=== PATIENT | female | born 1955 | race Caucasian/White ===

== ENCOUNTER → 2016-05-20 07:42 | Day surgery (SDC) | payer BC ==
[~2016-05-20 07:42] MED LIST: Buffered Lidocaine 1% SYRIN* 3 ML/SYR SYRINGE INTRADERM ONE; Bupivacaine 0.5% SDV PF* 30 ML VIAL ONE; Dexamethasone IV* 4 MG/ML 1 ML (4 MG) IV SLOW PU ONE; Dexamethasone IV* 4 MG/ML 1 ML (4 MG) ONE; Famotidine IV* 10 MG/ML 2 ML (20 mg) IV ONE; Famotidine IV* 10 MG/ML 2 ML (20 mg) ONE; HYDROcodone/ACETAMIN 5-325 MG* 1 TAB PO PRN; Ketorolac INJ* 30 MG/ML 1 ML VIAL ONE; Lidocaine 2% PF* 10 ML AMP ONE; Lidocaine 2% PF* 5 ML VIAL ONE; Midazolam* 1 MG/ML 5 ML VIAL (5 MG) ONE; Ondansetron INJ* 2 MG/ML VIAL ONE; PROCHLORPERAZINE INJ 5 MG/ML 2 ML VIAL IV PRN; Propofol* 10 MG/ML 20 ML BTL IV PUSH ONE; ceFAZolin 2 GM PREMIX(*) 2 GM/50 ML BAG IVPB ONE; fentaNYL* 50 MCG/ML 2 ML VIAL (100 MCG VIAL) IV PRN; fentaNYL* 50 MCG/ML 2 ML VIAL (100 MCG VIAL) ONE
[2016-05-20 10:57] VITALS: BP 119/78
--- NOTE | 2016-05-21 12:27 | OP ---
DATE OF OPERATION: 05/20/16 - [facility] DATE OF : 57 ATTENDING SURGEON: Domingo Bhatt MD. FERTILIZER MIXER: Miladys Armenta PA-C ANESTHESIOLOGIST: Edith Michael MD ANESTHESIA: General PRE-OP DIAGNOSIS: Left ankle instability, torn anterior talofibular ligament. POST-OP DIAGNOSIS: Left ankle instability, torn anterior talofibular ligament. OPERATIVE PROCEDURE: Open repair left anterior talofibular ligament. DESCRIPTION OF PROCEDURE: The patient was taken to the operating room where a longitudinal incision was made over the distal fibula. I raised an anterior flap to allow visualization of the capsule. I divided the capsule directly on the anterior and distal portion of the fibula. I was then able to inspect the thickness and firm attachment of the capsule. I felt that the capsules could be repaired and brought up to the fibula without having these in allograft. [id number] bone sutures were then made with a 0.062 C-wire. I passed #1 Vicryl through these holes and then brought the capsule up firmly to the edge of the fibula with a Santino-Shan suture. We then brought the redundant periosteum over the capsular repair with 2-0 Vicryl and after subcu closure, some fernando and a compression dressing and plaster splint applied. [id number]/CPS #: [id number] MTDD
== END | disposition home or self-care (01) ==
LOC: OR 07:42
PROVIDERS: ATTEND Orthopaedic Surgery
DX: M25.372 Other instability, left ankle (principal); Z87.891 Personal history of nicotine dependence
CPT/HCPCS: C1776; J0690; J1100; J1885; J2001; J2250; J2405; J2704; J3010

== ENCOUNTER 2016-10-17 15:51 | Emergency (ER) | payer BC, OTHER ==
--- NOTE | 2016-10-17 18:06 | RAD ---
Indication: Midsternal chest pain. History of herniation. Comparison: June 14, 2012 Technique: Upright AP 1747 hours Report: Clear lungs and pleural spaces. Negative for pneumothorax. The heart, pulmonary vasculature, and mediastinal contours are unremarkable. Unremarkable osseous structures and soft tissue contours. IMPRESSION: No evidence for acute intrathoracic disease.
[2016-10-17 18:36] LABS: Hematocrit 43 % (35-47); Hemoglobin 14.8 g/dl (12.0-16.0); Mean Corpuscular HGB Conc 35 g/dl (31-36); Mean Corpuscular Hemoglobin 32 pg (27-31); Mean Corpuscular Volume 93 fL (80-97); Mean Platelet Volume 8 um3 (7.4-10.4); Red Blood Count 4.62 10^6/ul (4.0-5.4); Red Cell Distribution Width 13 % (10.5-15); White Blood Count 10.9 10^3/ul (3.5-10.8)
[2016-10-17 18:55] LABS: Albumin 4.2 g/dL (3.2-5.2); BUN/Creatinine Ratio 21.6 (8-20); Calcium 9.4 mg/dL (8.6-10.3); EGFR African American 158.7 (>60); EGFR Non-African American 123.4 (>60); Globulin 3.4 g/dL (2-4); Magnesium 2.1 mg/dL (1.9-2.7); Potassium 3.8 mmol/L (3.5-5.0); Total Bilirubin 0.5 mg/dL (0.2-1.0); Total Protein 7.6 g/dL (6.4-8.9)
--- NOTE | 2016-10-17 19:21 | ED ---
HPI Chest Pain - HPI Summary HPI Summary: Patient presents to the ED with CC of chest pain since yesterday described as "lump in the midsternal chest" and as a "pressure" History of a hiatal hernia and GERD. Chest pain began yesterday after eating a bowl of chili. She stated it continued throughout her dinner and again this morning after breakfast, although she did not have a spicy breakfast, but symptoms began again and worsened after eating. She states now the pain has all but dissipated and rates it 1/10, previously a 8/10. Not worse with exertion or better with rest. She denies radiation of pain including involvment of the jaw or shoulder. Denies diaphoresis. Past family hitory is very strong for cardiac pathologies. Mother had first CA at 36, all family including brothers and sisters (all but 1 ) have history of CA's and HTN and multiple strokes. Denies taking any medications since changing her diet, but has had flare ups since that time. Her PCP has not placed her on any medications for her GERD at this point since she has not had many flare ups. She notes to coffee causing flare ups. She denies smoking history. PMHx includes HTN which she takes Atenolol 25mg daily. She is otherwise healthy. She is a non-smoker, very active, lives with . - History of Current Complaint Chief Complaint: EDChestPainROMI Time Seen by Provider: 10/17/16 16:39 Hx Obtained From: Patient Onset/Duration: Started Days Ago Timing: Intermittent - started yesterday afternoon Initial Severity: Mild Current Severity: Mild Pain Intensity: 1 Pain Scale Used: 0-10 Numeric Chest Pain Radiates: No Character: Dull/Aching, Heaviness Aggravating Factor(s): Nothing Alleviating Factor(s): Nothing Associated Signs and Symptoms: Positive: Chest Pain - Risk Factors Pulmonary Embolism Risk Factors: Negative TAD Risk Factors: Negative AMI/ACS Risk Factors: Family History, Hypertension - Allergy/Home Medications Allergies/Adverse Reactions: Allergies Allergy/AdvReac Type Severity Reaction Status Date / Time Sulfa Drugs Allergy Severe Anaphylatic Verified 05/14/16 12:56 Shock PMH/Surg Hx/FS Hx/Imm Hx Previously Healthy: Yes Endocrine/Hematology History: Denies: Hx Diabetes, Hx Thyroid Disease Cardiovascular History: Reports: Hx Hypertension Denies: Hx Congestive Heart Failure, Hx Pacemaker/ICD Respiratory History: Denies: Hx Asthma, Hx Chronic Obstructive Pulmonary Disease (COPD) GI History: Reports: Hx Hiatal Hernia - in the past, no surgery Denies: Hx Ulcer History: Denies: Hx Dialysis, Hx Renal Disease Sensory History: Reports: Hx Contacts or Glasses - reading Denies: Hx Hearing Aid Opthamlomology History: Reports: Hx Contacts or Glasses - reading Neurological History: Denies: Other Neuro Impairments/Disorders - DENIES Psychiatric History: Denies: Hx Panic Disorder - Cancer History Hx Chemotherapy: No Hx Radiation Therapy: No - Surgical History Surgery Procedure, Year, and Place: LEFT ankle surgery X2 laparoscopy 30 yrs ago ENDOMETRIOSIS, LEFT SHOULDER ARTHROSCOPY 11/22 Hx Anesthesia Reactions: No Infectious Disease History: No Infectious Disease History: Denies: Hx Clostridium Difficile, Hx Hepatitis, Hx Human Immunodeficiency Virus (HIV), Hx of Known/Suspected MRSA, Hx Shingles, Hx Tuberculosis, Hx Known/ Suspected VRE, Hx Known/Suspected VRSA, History Other Infectious Disease, Traveled Outside the in Last 30 Days - Social History Occupation: Employed Full-time Lives: With Family Alcohol Use: Daily Alcohol Amount: WINE WITH DINNER Hx Substance Use: No Substance Use Type: Reports: None Hx Tobacco Use: No Smoking Status (MU): Former Smoker Review of Systems Constitutional: Negative Negative: Fever, Chills, Fatigue Eyes: Negative ENT: Negative Positive: Chest Pain Respiratory: Negative Gastrointestinal: Negative Positive: no symptoms reported, see HPI Skin: Negative Neurological: Negative All Other Systems Reviewed And Are Negative: Yes Physical Exam Triage Information Reviewed: Yes Vital Signs On Initial Exam: Initial Vitals Temp Pulse Resp BP Pulse Ox 97.9 F 66 20 144/101 98 10/17/16 15:52 10/17/16 15:52 10/17/16 15:52 10/17/16 15:52 10/17/16 15:52 Vital Signs Reviewed: Yes Appearance: Positive: Well-Appearing, Well-Nourished Skin: Positive: Warm, Skin Color Reflects Adequate Perfusion Head/Face: Positive: Normal Head/Face Inspection Eyes: Positive: EOMI, MARJORIE Neck: Positive: Supple, No Lymphadenopathy Respiratory/Lung Sounds: Positive: Clear to Auscultation, Breath Sounds Present Cardiovascular: Positive: Normal, RRR, Pulses are Symmetrical in both Upper and Lower Extremities Musculoskeletal: Positive: Normal, Strength/ROM Intact Neurological: Positive: Sensory/Motor Intact, Alert, Oriented to Person Place, Time, Speech Normal Psychiatric: Positive: Normal - [place] Coma Scale Coma Scale Total: 15 Diagnostics - Vital Signs Vital Signs Temp Pulse Resp BP Pulse Ox 10/17/16 18:00 58 14 123/94 99 10/17/16 17:42 98.1 F 58 20 139/87 99 10/17/16 17:30 58 14 139/87 99 10/17/16 17:09 16 137/88 10/17/16 15:52 97.9 F 66 20 144/101 98 - Laboratory Lab Results: Lab Results 10/17/16 10/17/16 10/17/16 Range/Units 18:19 18:19 18:19 WBC 10.9 H (3.5-10.8) 10^3/ul RBC 4.62 (4.0-5.4) 10^6/ul Hgb 14.8 (12.0-16.0) g/dl Hct 43 (35-47) % MCV 93 (80-97) fL MCH 32 H (27-31) pg MCHC 35 (31-36) g/dl RDW 13 (10.5-15) % Plt Count 282 (150-450) 10^3/ul MPV 8 (7.4-10.4) um3 Neut % (Auto) 74.0 (38-83) % Lymph % (Auto) 18.1 L (25-47) % Logan % (Auto) 6.4 (1-9) % Eos % (Auto) 1.1 (0-6) % Baso % (Auto) 0.4 (0-2) % Absolute Neuts (auto) 8.0 H (1.5-7.7) 10^3/ul Absolute Lymphs (auto) 2.0 (1.0-4.8) 10^3/ul Absolute Monos (auto) 0.7 (0-0.8) 10^3/ul Absolute Eos (auto) 0.1 (0-0.6) 10^3/ul Absolute Basos (auto) 0 (0-0.2) 10^3/ul Absolute Nucleated RBC 0 10^3/ul Nucleated RBC % 0 APTT 27.5 (26.0-36.3) seconds D-Dimer, Quantitative < 200 (Less Than 230) ng/mL Sodium (133-145) mmol/L Potassium (3.5-5.0) mmol/L Chloride (101-111) mmol/L Carbon Dioxide (22-32) mmol/L Anion Gap (2-11) mmol/L BUN (6-24) mg/dL Creatinine (0.51-0.95) mg/dL Est GFR ( Amer) (>60) Est GFR (Non-Af Amer) (>60) BUN/Creatinine Ratio (8-20) Glucose (70-100) mg/dL Lactic Acid (0.5-2.0) mmol/L Calcium (8.6-10.3) mg/dL Magnesium (1.9-2.7) mg/dL Total Bilirubin (0.2-1.0) mg/dL AST (13-39) U/L ALT (7-52) U/L Alkaline Phosphatase (34-104) U/L Total Creatine Kinase (10-223) U/L CK-MB (CK-2) (0.6-6.3) ng/mL Troponin I (<0.04) ng/mL B-Natriuretic Peptide 25 ( - 100) pg/mL Total Protein (6.4-8.9) g/dL Albumin (3.2-5.2) g/dL Globulin (2-4) g/dL Albumin/Globulin Ratio (1-3) 10/17/16 10/17/16 Range/Units 18:19 18:19 WBC (3.5-10.8) 10^3/ul RBC (4.0-5.4) 10^6/ul Hgb (12.0-16.0) g/dl Hct (35-47) % MCV (80-97) fL MCH (27-31) pg MCHC (31-36) g/dl RDW (10.5-15) % Plt Count (150-450) 10^3/ul MPV (7.4-10.4) um3 Neut % (Auto) (38-83) % Lymph % (Auto) (25-47) % Logan % (Auto) (1-9) % Eos % (Auto) (0-6) % Baso % (Auto) (0-2) % Absolute Neuts (auto) (1.5-7.7) 10^3/ul Absolute Lymphs (auto) (1.0-4.8) 10^3/ul Absolute Monos (auto) (0-0.8) 10^3/ul Absolute Eos (auto) (0-0.6) 10^3/ul Absolute Basos (auto) (0-0.2) 10^3/ul Absolute Nucleated RBC 10^3/ul Nucleated RBC % APTT (26.0-36.3) seconds D-Dimer, Quantitative (Less Than 230) ng/mL Sodium 134 (133-145) mmol/L Potassium 3.8 (3.5-5.0) mmol/L Chloride 100 L (101-111) mmol/L Carbon Dioxide 25 (22-32) mmol/L Anion Gap 9 (2-11) mmol/L BUN 11 (6-24) mg/dL Creatinine 0.51 (0.51-0.95) mg/dL Est GFR ( Amer) 158.7 (>60) Est GFR (Non-Af Amer) 123.4 (>60) BUN/Creatinine Ratio 21.6 H (8-20) Glucose 100 (70-100) mg/dL Lactic Acid 1.5 (0.5-2.0) mmol/L Calcium 9.4 (8.6-10.3) mg/dL Magnesium 2.1 (1.9-2.7) mg/dL Total Bilirubin 0.50 (0.2-1.0) mg/dL AST 21 (13-39) U/L ALT 17 (7-52) U/L Alkaline Phosphatase 70 (34-104) U/L Total Creatine Kinase 44 (10-223) U/L CK-MB (CK-2) 0.9 (0.6-6.3) ng/mL Troponin I 0.00 (<0.04) ng/mL B-Natriuretic Peptide ( - 100) pg/mL Total Protein 7.6 (6.4-8.9) g/dL Albumin 4.2 (3.2-5.2) g/dL Globulin 3.4 (2-4) g/dL Albumin/Globulin Ratio 1.2 (1-3) Result Diagrams: 10/17/16 18:19 10/17/16 18:19 Lab Statement: Any lab studies that have been ordered have been reviewed, and results considered in the medical decision making process. Chest Pain Course/Dx - Course Course Of Treatment: Patient presents with chest pain intermittent since last evening worse with food intake. History of hiatal hernia and GERD. Takes no medication for GERD. Xray shows no acute changes. EKG shows anteroseptal infarct, age indeterminate. She is feeling better on arrival. 2 trops negative. Other lab work WNL. Chest xray negative. She was not given aspirin in ED d/t feeling improved. She called her PCP who sent her here to the ED for evaluation of acute CA. Denies travel history or smoking. Low risk for PE. Patient states she will follow up with GI and PCP. - Chest Pain Differential Diagnosis/HQI/PQRI: Acute CA, ACS, Chest Wall - Diagnoses Provider Diagnoses: Chest pain Discharge - Discharge Plan Condition: Stable Disposition: HOME Prescriptions: Omeprazole 40 mg PO DAILY #30 cap Patient Education Materials: Chest Pain (ED), Hiatal Hernia (ED) Referrals: Naseem Sam MD [Medical Doctor] - Renetta Willard MD [Primary Care Provider] - Additional Instructions: Please follow up with PCP next week I have given you a referral to GI for hiatal hernia evaluation Take the Prilosec daily 40mg - talk to your doctor about continuing this medication For breakthrough pain and discomfort - Maalox 30mg liquid
[2016-10-17 21:07] VITALS: BP 116/80
== END 2016-10-17 21:05 | disposition home or self-care (01) ==
LOC: ED 15:51
DX: R07.9 Chest pain, unspecified (principal); Z87.891 Personal history of nicotine dependence
CPT/HCPCS: 36415; 71010; 80053; 82550; 82553; 83605; 83735; 83880; 84484; 85025; 85379; 85730; 87040; 93005; 99283

== ENCOUNTER 2018-04-17 09:09 | Emergency (ER) | payer BC, OTHER ==
--- OUTSIDE RECORDS SUMMARY | 2018-04-17 09:16 | XMS REPORT | Continuity of Care Document ---
:1955 External Reference #:[id number] Author Name Sanjuana Altamirano Care Team Providers Name Role Phone Renetta Willard MD Primary Care Physician Unavailable Payers Date Identification Numbers Payment Provider Subscriber Policy Number: [id number] [facility] Leta Lewis PayID: [id number] [address] [place] [address] Advance Directives Description No Information Available Problems Date Description Provider Status Onset: 01/28/2014 Skin sensation disturbance Kelly Canseco M.D. Active Onset: 01/28/2014 Benign essential hypertension Kelly Canseco M.D. Active Onset: 01/28/2014 Muscle weakness Nazia Murray M.D. Active Onset: 07/15/2016 Impacted cerumen Jones Andrea M.D. Active Onset: 10/03/2015 Adhesive capsulitis of shoulder Al Adamson MD Active Onset: 05/15/2015 Otalgia Jones Andrea M.D. Active Onset: 05/15/2015 Temporomandibular joint disorder Jones Andrea M.D. Active Onset: 05/15/2015 Exostosis of external ear canal Jones Andrea M.D. Active Onset: 11/03/2014 Strain of other muscles, fascia and Murphy Fernández M.D. Active tendons at shoulder and upper arm level, left arm, subsequent encounter Onset: 09/22/2014 Sprain of shoulder and upper arm Murphy Fernández M.D. 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 Cigarette Use Quit 40 Years Ago Tobacco Use Start: Unknown Never Smoked Cigars Tobacco Use Start: Unknown Never Smoked A Pipe Smoking Status Reviewed: 03/26/18 Never Smoked A Pipe Smokeless Tobacco Never Used Smokeless Tobacco ETOH Use Consumes 7 glasses of wine per week Recreational Drug Use Denies Drug Use Tobacco Use Start: Unknown End: Patient is a former smoker Unknown Exercise Type/Frequency Exercises regularly Exercise Type/Frequency swim 2 days per week, walks Allergies, Adverse Reactions, Alerts Date Description Reaction Status Severity Comments 09/01/2012 Sulfa Antibiotics rash Active Medications Medication Date Status Form Strength Qnty SIG Indications Ordering Provider Atenolol Active Tablets 25mg 90tab 1 by Misbah Rahman 00 s mouth Kelli, every day M.D. Aspirin Ec Active Tablets 81mg 1 tablet Unknown Lo-Dose 00 DR daily. Ibuprofen Active Tablets 200mg 1-2 po as Unknown 00 needed Atorvastatin Active Tablets 10mg 1 po Galyanova Calcium 00 daily. , MD Renetta Zantac 150 Active Tablets 150mg 1 by Unknown Maximum Strength 00 mouth twice a day Chondroitin Active Capsules 400-60-2. once Unknown Sulfate 00 5mg daily Complex Protonix Active Tablets 40mg [address] mouth every day Epipen 2-Neil Active Solution 0.3mg/0.3 use as Unknown 00 Auto-Inje ML directed ct Amoxicillin Active Tablets 875mg Take 1 Unknown 00 Tablet By Mouth Two Times Daily Oxycodone HCL 05/21/19 Hx Tablets 5mg 40tab 1-2 tabs Domingo 17 - s by mouth Miller, 05/16/19 every 4-6 M.D. 17 hours as needed Methylprednisolon 10/03/19 Hx TBPK 4mg 21uni take as M75.02 Al raygoza 16 - ts bal Adamson, 07/15/19 MD Arana Amoxicillin ? Rx 05/15/19 Hx Jones From [place] 16 - Ruparelia 09/13/19 Michael 16 Cipro 04/19/19 Hx Tablets 250mg 20tab one by H60.312 Gypsy 16 - s mouth Varn, 04/29/19 twice N.P. 16 daily for 10 days Ciprofloxacin HCL 11/29/19 Hx Tablets 500mg 14tab 1 tab by R30.0 Jimbo 15 - s mouth Ham, [employer] 04/19/19 twice a 16 day x 7 days Fluconazole 11/29/19 Hx Tablets 150mg 3tabs 1 tab by R30.0 Jimbo 15 - mouth x1 Ham, [employer]LYST 04/19/19 16 Zofran 11/19/19 Hx Tablets 8mg 30tab 1 tab Kelly 15 - s every 8 Ajith, 04/19/19 hours as M.D. 16 needed Cipro 11/18/19 Hx Tablets 250mg 14tab one by Kelly 15 - s nouth Ajith, 11/29/19 twice M.D. 15 daily for 7 days Medrol (Neil) 08/03/19 Hx Tablets 4mg 1tabs use as Murphy 15 - directed Pradeep, 10/12/19 M.DEdith 15 Jublia 07/29/19 Hx Solution 10% 4unit Apply B35.1 Kelly 15 - s Topically Ajith, 07/15/19 To M.D. 17 Toenails Once Per Day Valium 07/28/19 Hx Tablets 5mg 2tabs 1 po 2 Nazia Ayers 13 - hours [facility], 12/22/19 prior to M.D. 10 mri may take one more q 1 hr prn anxiety Vitamin B12 Hx Tablets 100mcg 1 by Unknown 00 - mouth 07/15/19 every day 17 Vitamin C Hx 500mg 1 po Unknown - 07/15/19 17 Biotin Hx Capsules 5000mcg 1 tab day Unknown - 01/15/20 18 Cranberry Hx Capsules 500mg 1 po Unknown Concentrate 00 - daily 01/15/20 18 Zantac 75 Hx Tablets 75mg take 1 Unknown 00 - tab by Unknown mouth at at bedtime Medications Administered in Office Medication Date Status Form Strength Qnty SIG Indications Ordering Provider Depomedrol Administered Injection Murphy 80MG 015 Michael Fernández Immunizations Description No Information Available Vital Signs Date Vital Result Comment 03/26/2018 10:41am Height 68 inches 5'8" Weight 170.00 lb Heart Rate 84 /min BP Systolic Standing 112 mmHg BP Diastolic Standing 78 mmHg Respiratory Rate 18 /min Body Temperature 97.7 F BMI (Body Mass Index) 25.8 kg/m2 01/15/2018 9:53am Height 68 inches 5'8" Weight 170.00 lb Heart Rate 64 /min BP Systolic Sitting 110 mmHg Lue lg cuff BP Diastolic Sitting 82 mmHg Lue lg cuff Pain Level 0 BMI (Body Mass Index) 25.8 kg/m2 10/03/2016 9:35am Height 68 inches 5'8" Weight 175.00 lb Respiratory Rate 16 /min Pain Level 0 BMI (Body Mass Index) 26.6 kg/m2 08/05/2016 1:19pm Height 68 inches 5'8" Heart Rate 52 /min BP Systolic 126 mmHg BP Diastolic 86 mmHg Respiratory Rate 20 /min Pain Level 1 Shoulder pain. 07/23/2016 10:57am Height 68 inches 5'8" Weight 175.00 lb BP Systolic 117 mmHg BP Diastolic 78 mmHg Body Temperature 96.8 F Pain Level 0 BMI (Body Mass Index) 26.6 kg/m2 07/15/2016 2:44pm Height 68 inches 5'8" Weight 175.00 lb Heart Rate 60 /min BP Systolic 114 mmHg BP Diastolic 80 mmHg Respiratory Rate 20 /min Pain Level 0 ears BMI (Body Mass Index) 26.6 kg/m2 06/25/2016 11:47am Height 68 inches 5'8" Weight 176.00 lb BP Systolic 122 mmHg BP Diastolic 98 mmHg Body Temperature 97.5 F Pain Level 0 BMI (Body Mass Index) 26.8 kg/m2 06/04/2016 9:57am Height 68 inches 5'8" Weight 176.00 lb Heart Rate 64 /min BP Systolic 115 mmHg BP Diastolic 82 mmHg Respiratory Rate 15 /min Body Temperature 97.0 F Pain Level 0 BMI (Body Mass Index) 26.8 kg/m2 05/09/2016 9:49am Height 68 inches 5'8" Weight 176.00 lb BP Systolic 118 mmHg BP Diastolic 76 mmHg Respiratory Rate 18 /min Pain Level 0 BMI (Body Mass Index) 26.8 kg/m2 02/23/2016 11:05am Height 68 inches 5'8" Weight 172.00 lb Pain Level 0 BMI (Body Mass Index) 26.1 kg/m2 01/25/2016 10:23am Height 68 inches 5'8" Weight 172.00 lb Pain Level 1 BMI (Body Mass Index) 26.1 kg/m2 01/09/2016 9:12am Height 68 inches 5'8" Weight 172.00 lb BP Systolic 127 mmHg BP Diastolic 75 mmHg Respiratory Rate 17 /min Pain Level 5 BMI (Body Mass Index) 26.1 kg/m2 10/03/2015 8:04am Height 66.75 inches 5'6.75" Weight 169.00 lb BP Systolic 115 mmHg BP Diastolic 74 mmHg Pain Level 1 10 when moving BMI (Body Mass Index) 26.7 kg/m2 05/15/2015 3:39pm Weight 171.00 lb 04/19/2015 1:02pm Weight 171.00 lb Heart Rate 65 /min BP Systolic Sitting 114 mmHg BP Diastolic Sitting 81 mmHg Body Temperature 97.9 F 11/28/2014 1:03pm Weight 174.00 lb Heart Rate 60 /min BP Systolic Sitting 121 mmHg BP Diastolic Sitting 82 mmHg Body Temperature 96.6 F 11/03/2014 10:16am Height 68 inches 5'8" Weight 170.00 lb Pain Level 3 BMI (Body Mass Index) 25.8 kg/m2 09/22/2014 11:03am Height 68 inches 5'8" Weight 170.00 lb Pain Level 2 BMI (Body Mass Index) 25.8 kg/m2 07/28/2014 3:45pm Weight 173.50 lb Heart Rate 59 /min BP Systolic Sitting 120 mmHg BP Diastolic Sitting 76 mmHg Body Temperature 97.4 F O2 % BldC Oximetry 98 % 06/28/2014 9:53am Height 68 inches 5'8" Weight 170.00 lb Heart Rate 61 /min BP Systolic 121 mmHg BP Diastolic 87 mmHg Pain Level 6 BMI (Body Mass Index) 25.8 kg/m2 06/28/2014 9:17am Height 68 inches 5'8" Weight 175.00 lb Pain Level 0 BMI (Body Mass Index) 26.6 kg/m2 05/24/2014 4:55pm Weight 175.25 lb Heart Rate 62 /min BP Systolic Sitting 122 mmHg BP Diastolic Sitting 78 mmHg Body Temperature 97.6 F Pain Level 9 L pectoral muscles O2 % BldC Oximetry 97 % 05/03/2014 1:42pm Height 68 inches 5'8" Weight 176.75 lb Heart Rate 78 /min BP Systolic Sitting 116 mmHg BP Diastolic Sitting 80 mmHg Body Temperature 98.2 F Pain Level 5 L shoulder w/ movement BMI (Body Mass Index) 26.9 kg/m2 04/27/2014 8:30am Height 68 inches 5'8" Weight 173.00 lb Heart Rate 63 /min BP Systolic 121 mmHg BP Diastolic 78 mmHg BMI (Body Mass Index) 26.3 kg/m2 01/28/2014 2:38pm Height 68 inches 5'8" Weight 173.75 lb Heart Rate 72 /min BP Systolic Sitting 102 mmHg BP Diastolic Sitting 66 mmHg O2 % BldC Oximetry 95 % BMI (Body Mass Index) 26.4 kg/m2 01/21/2014 9:23am Height 68 inches 5'8" Weight 170.00 lb Heart Rate 59 /min BP Systolic Sitting 122 mmHg BP Diastolic Sitting 83 mmHg Body Temperature 97.2 F BMI (Body Mass Index) 25.8 kg/m2 09/01/2012 2:58pm Height 68 inches 5'8" Weight 168.00 lb Heart Rate 64 /min BP Systolic Sitting 110 mmHg BP Diastolic Sitting 64 mmHg Respiratory Rate 8 /min BMI (Body Mass Index) 25.5 kg/m2 Results Test Date Facility Test Result H/L Range Note Laboratory test 05/20/2016 [facility] Semiten SEE RESULTS 1 , [address] [place] <[place] [address] NOTE> [phone] Laboratory test 12/30/2014 [facility] Urine Culture And SEE RESULT [address] [place] [address] [phone] Ua And Culture 11/28/2014 [facility] Urine Culture And SEE RESULT [address] [place] [address] [phone] Urinalysis 11/28/2014 [facility] Urine Color Yellow N Profile [address] [place] [address] [phone] Urine Appearance Clear N Urine Specific [place] 1.009 Low 1.010-1.030 Urine pH 6.0 N 5-9 Urine Urobilinogen Negative N Negative Urine Ketones Negative N Negative Urine Protein Negative N Negative Urine Leukocytes Negative N Negative Urine Blood Negative N Negative Urine Nitrite Negative N Negative Urine Bilirubin Negative N Negative Urine Glucose Negative N Negative Ua Routine 11/28/2014 [employer] Ua Specific [place] 1.005 Ua PH 5 Ua Color yellow Ua Appera cloudy Ua WBC negative Ua Protein negative Ua Glucose negative Ua Ketones trace Ua Bilirubin negative Ua Urobilinogen normal Ua Nitrite negative Ua Occult Blood NHT Ua Routine 11/15/2014 [facility] House Ua Specific [place] 1.0005 Ua PH 6 Ua Color yellow Ua Appera clear Ua WBC neg Ua Protein neg Ua Glucose neg Ua Ketones neg Ua Bilirubin neg Ua Urobilinogen neg Ua Nitrite neg Ua Occult Blood neg Ua And Culture 11/15/2014 [facility] Urine Culture And SEE RESULT [address] [place] [address] [phone] Laboratory test 07/21/2012 [facility] Kaitlynn (Anti-Nuclear Negative Negative [address] AB) [place] [address] [phone] Ssa/SSB Abs Igg 07/21/2012 [facility] SS-A/Ro Antibody <0.2 U [address] [place] [address] [phone] SS-B/La Antibody <0.2 U 8 Laboratory test 07/21/2012 [facility] C Reactive 0.7 mg/dL High Less than finding [address] Protein 0.5 [place] [address] [phone] Angiotension Converting Enzyme 14 U/L 8 - 53 9 Lyme Disease Serology Negative Negative 10 Creatinine 07/21/2012 [facility] Creatinine 0.60 mg/dL 0.50- 1.[address] [place] [address] [phone] Egfr Non- 103.8 >60 Egfr 133.5 >60 11 1 OTHER INSTABILITY, LEFT ANKLE 2 SEE RESULTS BELOW [id number] SEMITEN ISSUED 05/20/16 0820 3 SEE RESULT BELOW Name: LETA LEWIS : [address]: Gabriela Miller MD Acct: [id number] Unit: [id number] AGE: 59 Location: LAB Re12/30/14 SEX: F Status: REG REF SPEC: [id number] [place]: 12/30/14-[address] [facility] [address]: Gabriela Miller MD REQ: [id number] RECD: 12/30/14 STATUS: SOCORRO GRAJEDA DR: Kelly Canseco MD _ SOURCE: URINE SPDESC: ORDERED: Urine Culture Procedure Result Verified Site Urine Culture Final 01/01/15- 0942 ML No Growth Day 2 (<1,000 CFU/mL) * ML - MAIN LAB ([facility]) . END OF REPORT * ML=Testing performed at Main Lab DEPARTMENT OF PATHOLOGY, [address] [place] [address] Charbel Ayala M.D. Director [facility] # [id number] 4 SEE RESULT BELOW Name: LETA LEWIS : [address]: Jimbo Ham NP Acct: [id number] Unit: [id number] AGE: 59 Location: [facility] Re11/28/14 SEX: F Status: REG REF SPEC: [id number] K[place]IGH: 11/28/[address] [facility] [address]: Jimbo Ham NP REQ: [id number] RECD: 11/28/14 STATUS: COMP _ SOURCE: URINE SPDESC: ORDERED: Urine Culture Procedure Result Verified Site Urine Culture Final 11/30/14- 1204 ML Organism 1 NORMAL ARVIND [place] Count 1-10,000 (Few) CFU/ML * ML - MAIN LAB ([facility]) . END OF REPORT * ML=Testing performed at Main Lab DEPARTMENT OF PATHOLOGY, [address] [place] [address] Charbel Ayala M.D. Director [facility] # [id number] 5 SEE RESULT BELOW Name: LETA LEWIS : [address]: Kelly Canseco MD Acct: [id number] Unit: [id number] AGE: 59 Location: [facility] Re11/15/14 SEX: F Status: REG REF SPEC: [id number] KALEIGH: 11/15/[address] [facility] [address]: Kelly Canseco MD REQ: [id number] RECD: 11/15/14 STATUS: COMP _ SOURCE: URINE SPDESC: ORDERED: Urine Culture Procedure Result Verified Site Urine Culture Final 11/17/14- 1010 ML Organism 1 ESCHERICHIA COLI [place] Count >100,000 (Many) CFU/ML 1. ESCHERICHIA COLI M.I.C. RX --------- ------ Ampicillin >=32 R Cefazolin <=4 S Cefepime <=1 S Ceftriaxone <=1 S Ciprofloxacin <=0.25 S Gentamicin <=1 S Levofloxacin <=0.12 S Meropenem <=0.25 S Nitrofurantoin <=16 S Tetracycline >=16 R Pipercillin/Tazobactam <=4 S Trimethoprim/Sulfamethoxazole <=20 S Amoxicillin/Clavulanic Acid 8 S Aztreonam <=1 S Contact the Microbiology Department for any additional antibiotic reporting. * ML - MAIN LAB ([facility]) . END OF REPORT * ML=Testing performed at Main Lab DEPARTMENT OF PATHOLOGY, [address] [place] [address] Charbel Ayala M.D. Director [facility] # [id number] 6 @Sample frozen by [id number] at 1918 on 07/21/12. 7 -- REFERENCE VALUE -- <1.0 (Negative) 8 -- REFERENCE VALUE -- <1.0 (Negative) Test Performed by: [place] [address] Credentialer: Sergey Leslie III, M.D. 9 Test Performed by: [place] [address] Credentialer: Sergey Leslie III, M.D. 10 Serologic response to B. burgdorferi infection is not detected, but cannot rule out early infection during which low or undetectable antibody levels to B. burgdorferi may be present. If clinically indicated, a new serum specimen should be submitted in 7-14 days. Test Performed by: [place] [address] Credentialer: Sergey Leslie III, M.D. 11 Because ethnic data is not always readily available, this report includes an eGFR for both -Americans and non- Americans. The National Kidney Disease Education Program (NKDEP) does not endorse the use of the MDRD equation for patients that are not between the ages of 18 and 70, are , have extremes of body size, muscle mass, or nutritional status, or are non- or non-. According to the National Kidney Foundation, irrespective of diagnosis, the stage of the disease is based on the level of kidney function: Stage Description GFR(mL/min/1.73 m(2)) 1 Kidney damage with normal or decreased GFR 90 2 Kidney damage with mild decrease in GFR 60-89 3 Moderate decrease in GFR 30-59 4 Severe decrease in GFR 15-29 5 Kidney failure <15 (or dialysis) Procedures Date Code Description Status 08/05/2016 79373 Remove Impacted Cerumen Completed 06/04/2016 36820 Short Leg Cast Completed 05/20/2016 23284 Repair Collateral Ligament Ankle, Secondary Completed 05/20/2016 25152 Repair Collateral Ligament Ankle, Secondary Completed 05/15/2015 28341 Tympanometry Completed 11/03/2014 54278 Inject Tendon Sheath Or Ligament Aponeurosis Eg Plantar Completed Fascia 09/12/2014 [id number] Mammogram Completed 02/10/2010 30494101 Colonoscopy Completed 12/02/2002 69878 ECHO/Stress Completed 12/02/2002 89712 Stress Test Completed Encounters Type Date Location Provider Dx Diagnosis Office Visit 01/15/2018 Orthopedic Roe Mccarty5.372 Other 9:30a Services Of Tammi Rodriguez instability, left ankle Office Visit 10/03/2016 Roe Hector5.372 Other 9:15a Services Of Tammi Rodriguez instability, left ankle Office Visit 07/15/2016 ENT Services Of Jones H92.02 Otalgia, left ear 2:30p 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 Office Visit 01/25/2016 Orthopedic Domingo M67.472 Ganglion, left 10:15a Services Of Michael Bhatt ankle and foot C.M.A. Office Visit 01/09/2016 Orthopedic Domingo M25.572 Pain in left ankle 9:00a Services Of Michael Bhatt and joints of left C.M.A. foot Office Visit 10/03/2015 Orthopedic Al Adamson M75.02 Adhesive 8:00a Services Of capsulitis of left C.M.A. shoulder Office Visit 05/15/2015 ENT Services Of Jones H61.813 Exostosis of 3:15p [facility] bilateral M26.60 Temporomandibular joint disorder, unspecified H92.02 Otalgia, left ear Office Visit 04/19/2015 1:00p [facility] Internal Gypsy Cabrales, H60.312 Diffuse otitis Medicine - N.P. externa, left Anna ear Office Visit 11/28/2014 1:00p [facility] Internal Jimbo Ham, [employer] R30.0 Dysuria [facility] R35.0 Frequency of micturition Z87.440 Personal history of urinary (tract) infections Office Visit 11/15/2014 10:40a [facility] Internal Kelly Canseco, R30.0 Dysuria Medicine - Michael Anna Office Visit 11/03/2014 10:15a Orthopedic Murphy Fernández, S46.812D Strain of Services Of Michael musc/fasc/tend C.M.A. at shldr/up arm, left arm, subs Office Visit 09/22/2014 10:40a Orthopedic Murphy Fernández, 840.9 Sprains & Services Of M.D. Strains C.M.A. Shoulder & Upper Arm Unspec Office Visit 08/02/2014 9:40a Patricia Fernández, 840.9 Sprains & Services Of M.D. Strains C.M.A. Shoulder & Upper Arm Unspec 840.8 Sprains & Strains Shoulder & Upper Arm Other Spec Sites 782.0 Skin Sensation Disturbance Office Visit 07/28/2014 3:40p [facility] Internal Kelly 110.1 Dermatophytosis Nail Jeffrey - Michael Canseco Anna 401.1 Hypertension Benign Office Visit 06/28/2014 2:10p Orthopedic Murphy Fernández, 726.0 Adhesive Services Of Michael Capsulitis C.M.A. Shoulder Office Visit 06/28/2014 9:15a Orthopedic Lata 729.2 Neuralgia Services Of Blas, Neuritis & C.M.AEdith yAersDEdith Radiculitis Unspec Office Visit 05/24/2014 4:40p [facility] Internal Kelly Canseco, 840.9 Sprains & Strains Medicine - M.D. Shoulder & Upper Anna Arm Unspec 840.8 Sprains & Strains Shoulder & Upper Arm Other Spec Sites 782.0 Skin Sensation Disturbance Office Visit 05/03/2014 1:40p [facility] Internal Kelly Canseco, 840.9 Sprains & Medicine - MJamil Strains Shoulder Anna & Upper Arm Unspec 110.4 Dermatophytosis Foot V76.19 Screening Breast Exam Malignant Neoplasms Other 840.8 Sprains & Strains Shoulder & Upper Arm Other Spec Sites Office Visit 04/27/2014 Orthopedic Lata 782.0 Skin Sensation 8:15a Services Of Michael Odonnell C.M.AEdith 729.2 Neuralgia Neuritis & Radiculitis Unspec Office Visit 01/28/2014 2:40p [facility] Internal Kelly Canseco 782.0 Skin Sensation Medicine - Michael Disturbance Anna Office Visit 01/21/2014 9:00a [facility] Internal Kelly Canseco, 401.1 Hypertension Medicine Alli Rodriguez Benign Anna Office Visit 01/21/2013 12:30p Mat Ayers 782.0 Skin Sensation Services Of Louis Murray M.D. Disturbance Office Visit 09/01/2012 3:00p Mat Ayers 782.0 Skin Sensation Services Of Louis Murray M.D. Disturbance Office Visit 07/21/2012 2:00p Mat Ayers 782.0 Skin Sensation Services Of Louis Murray M.D. Disturbance 728.87 Muscle Weakness Generalized Office Visit 06/14/2012 1:01p [place] Kody Valle 782.0 Skin Sensation Services Of Louis Rodriguez Disturbance 728.87 Muscle Weakness Generalized Plan of Treatment 03/26/2018 - Urban Wilkinson MD, FACSK21.9 Gastro-esophageal reflux disease without esophagitisFollow up:after testing is completedRecommendations: esophageal manometry/pH probe testing
[2018-04-17 09:26] VITALS: BP 125/73
--- NOTE | 2018-04-17 11:18 | UC ---
Lower Extremity/Ankle HPI - HPI Summary HPI Summary: 3 DAYS OF INCREASING PAIN LEFT FOOT BETWEEN 3RD AND 4TH TOES. PT WALKS DAILY FOR EXERCISE. DENIES ANY TRAUMA OR FALLS. HAS HAD SEVERAL LEFT ANKLE SURGERIES AND IS CONCERNED THAT SHE IS ALTERING HER GAIT DUE TO FOOT PAIN AND MIGHT IRRITATE HER ALREADY WEAK ANKLE. PAIN IS WORSE WITH WEIGHT BEARING AND AMBULATING. NO PAIN AT REST. NO SWELLING OR DISCOLORATION. - History of Current Complaint Chief Complaint: UCLowerExtremity Stated Complaint: FOOT PAIN Time Seen by Provider: 04/17/18 11:10 Hx Obtained From: Patient Onset/Duration: Gradual Onset, Lasting Days, Still Present Severity Initially: Moderate Severity Currently: Moderate Pain Intensity: 8 Pain Scale Used: 0-10 Numeric Aggravating Factor(s): Standing, Ambulation Alleviating Factor(s): Rest Able to Bear Weight: Yes - WITH PAIN - Allergies/Home Medications Allergies/Adverse Reactions: Allergies Allergy/AdvReac Type Severity Reaction Status Date / Time Sulfa (Sulfonamide Allergy anaph Verified 04/17/18 09:27 Antibiotics) PMH/Surg Hx/FS Hx/Imm Hx Cardiovascular History: Hypertension - Surgical History Surgical History: Yes Surgery Procedure, Year, and Place: LEFT ankle surgery X2 laparoscopy 30 yrs ago ENDOMETRIOSIS, LEFT SHOULDER ARTHROSCOPY 11/22 - Family History Known Family History: Positive: Non-Contributory - Social History Alcohol Use: Daily Alcohol Amount: WINE WITH DINNER Substance Use Type: None Smoking Status (MU): Former Smoker When Did the Patient Quit Smoking/Using Tobacco: 35 years ago Review of Systems All Other Systems Reviewed And Are Negative: Yes Constitutional: Positive: Negative Skin: Positive: Negative Respiratory: Positive: Negative Cardiovascular: Positive: Negative Gastrointestinal: Positive: Negative Musculoskeletal: Positive: Arthralgia Physical Exam Triage Information Reviewed: Yes Appearance: Well-Appearing, No Pain Distress, Well-Nourished Vital Signs: Initial Vital Signs Temp 96.5 F 04/17/18 09:23 Pulse 60 04/17/18 09:23 Resp 16 04/17/18 09:23 BP 125/73 04/17/18 09:23 Pulse Ox 100 04/17/18 09:23 Vital Signs Reviewed: Yes Eyes: Positive: Conjunctiva Clear ENT: Positive: Hearing grossly normal Neck: Positive: Supple Respiratory: Positive: No respiratory distress, No accessory muscle use Cardiovascular: Positive: Pulses Normal Abdomen Description: Positive: Soft Musculoskeletal: Positive: ROM Intact, No Edema, Other: Neurological: Positive: Alert Psychological: Positive: Age Appropriate Behavior Skin: Negative: Rashes Diagnostics - Radiology left foot xray Radiology Interpretation Completed By: Radiologist Summary of Radiographic Findings: unremarkable Lower Extremity Course/Dx - Course Course Of Treatment: PHYSICAL EXAM CONSISTENT WITH MORTONS NEUROMA THE LEFT FOOT. POSTOP SHOE PROVIDED TO HELP OFFLOAD PRESSURE FROM THE FRONT OF THE FOOT. PATIENT ALREADY HAS A FOLLOW-UP APPOINTMENT WITH ORTHOPEDICS IN 4 DAYS. REST, ELEVATE FOOT, OTC MEDS NEEDED FOR DISCOMFORT. 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 MORTONS NEUROMA VS METATARSALGIA. REST, ELEVATE, NSAIDS NEEDED FOR DISCOMFORT. POST-OP SHOE TO HELP WITH MOBILITY. YOU WILL LIKELY BENEFIT FROM ORTHOTICS TO SUPPORT YOUR FOOT. KEEP YOUR ORTHO APPT NEXT FRIDAY. - Billing Disposition and Condition Condition: STABLE Disposition: Home
== END 2018-04-17 12:03 | disposition home or self-care (01) ==
LOC: UCEAST 09:09
DX: G57.62 Lesion of plantar nerve, left lower limb (principal); I10 Essential (primary) hypertension; Z88.2 Allergy status to sulfonamides; Z87.891 Personal history of nicotine dependence
CPT/HCPCS: 99211; G0463

== ENCOUNTER 2021-02-10 08:46 | Observation (INO) ==
[2021-02-10] MEDS ORDERED: Al Hydrox/Mg Hydrox/Simet LIQ 30 ML UDC PO ONE (09:27)
[2021-02-10 09:29] LABS: ABS Basophils 0.1 10^3/ul (0-0.2); ABS Eosinophils 0.1 10^3/ul (0-0.6); ABS Lymphocytes 1.9 10^3/ul (1.0-4.8); ABS Monocytes 0.4 10^3/ul (0-0.8); ABS Neutrophils 4.1 10^3/ul (1.5-7.7); Eosinophil % 0.9 %; Hematocrit 42 % (35-47); Hemoglobin 14.2 g/dL (12.0-16.0); Lymphocyte % 29.4 %; Mean Corpuscular HGB Conc 34 g/dL (31-36); Mean Corpuscular Hemoglobin 32 pg (27-31); Mean Corpuscular Volume 93 fL (80-97); Mean Platelet Volume 7.5 fL (7.4-10.4); Platelet Count 272 10^3/uL (150-450); Red Blood Count 4.47 10^6 /uL (3.70-4.87); Red Cell Distribution Width 13 % (10-15); White Blood Count 6.5 10^3/uL (3.5-10.8)
[2021-02-10 09:48] LABS: Albumin 4.2 g/dL (3.2-5.2); Albumin/Globulin Ratio 1.5 (1-3); Calcium 9.2 mg/dL (8.6-10.3); Globulin 2.8 g/dL (2-4); Potassium 4.3 mmol/L (3.5-5.0); Total Bilirubin 0.5 mg/dL (0.2-1.0); eGFR CKD-EPI 99.4 (>60)
[2021-02-10 09:49] LABS: INR 0.96 (0.86-1.15)
[2021-02-10] MEDS ORDERED: Iohexol 350 (CONTRAST) 500 ML MDV IV ONE (10:08)
[2021-02-10] MEDS ORDERED: Ondansetron 4 mg VIAL 2 MG/ML 2 ml VIAL IV PRN (15:38)
[2021-02-10] MEDS ORDERED: Al Hydrox/Mg Hydrox/Simet LIQ 30 ML UDC PO PRN (15:47)
[2021-02-10 16:07] LABS: HDL Cholesterol 87.7 mg/dL
[2021-02-10 16:21] LABS: TSH Ultra Thyroid Stim Horm 1.37 mcIU/mL (0.34-5.60)
[2021-02-10] MEDS: Enoxaparin 40 MG/0.4 ML SYR SUBCUT SCH (20:13)
[2021-02-11] MEDS ORDERED: DESLORATADINE 5 MG PO SCH (09:00)
[2021-02-11] MEDS: Aspirin EC 81 mg TAB.EC (enteric coated) PO SCH (09:21)
[2021-02-11] MEDS: NIACIN 500 MG PO SCH (09:22)
[2021-02-11] MEDS: CIMETIDINE 400 MG PO SCH ×2 (09:22→20:11)
[2021-02-11] MEDS: Enoxaparin 40 MG/0.4 ML SYR SUBCUT SCH (17:17)
[2021-02-11] MEDS ORDERED: PTO: LevoCETirizine 5 mg TAB (NF) PO SCH (21:00)
[2021-02-12 08:05] VITALS: BP 121/72
[2021-02-12] MEDS: Aspirin EC 81 mg TAB.EC (enteric coated) PO SCH (14:19)
[2021-02-12] MEDS: CIMETIDINE 400 MG PO SCH (14:20)
[2021-02-12] MEDS: NIACIN 500 MG PO SCH (14:20)
== END 2021-02-12 16:07 | disposition home or self-care (01) ==
LOC: ED 08:46 → EDHOLD 15:43 → INTOOBSV 15:43 → MEDTELE 16:56
PROVIDERS: ADMIT Hospitalist; ATTEND Hospitalist